=== PATIENT | female | born 1955 | race Asian ===

== ENCOUNTER 2017-10-10 21:58 | Emergency (ER) | payer BC ==
[~2017-10-10] VITALS: Ht 157.5 cm; Wt 63.5 kg
--- NOTE | ~2017-10-10 | EKG ---
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: MANDIE : 1955 Requested By: Vito Hernandez Order Number: [id number] MD: Maxwell Michael Measurements Intervals [place] Rate: 64 P: ME: QRS: 68 QRSD: 100 T: -59 QT: 451 QTc: 466 Interpretive Statements Afib/flut and V-paced complexes No further rhythm analysis attempted due to paced rhythm Nonspecific T abnormalities, diffuse leads Baseline wander in lead(s) V6 Compared to ECG 01/25/2017 11:14:47 Intrinsic depolarizations are not present Electronically Signed On 10-11-2017 13:19:56 KOHINOOR OPERATOR by Maxwell Michael [email or web address] <ELECTRONICALLY SIGNED> By: Maxwell Michael MD, FAC 10/11/17 1319 2347 2347 Maxwell Michael MD, [facility] /EPI
[~2017-10-10 21:58] MED LIST: ACETAMINOPHEN325 M1 PO; ADULT LOW DOSE81 MG PO; AMITRIPTYLINE H25 M2 PO; ANUSOL-HC30 GM RC; ASPIRIN EC81 M1 PO; ASPIRIN325 PO; BENICAR20 MG PO; CARDIZEM; CLOPIDOGREL; COUMADIN; COUMADIN 2 MG TA2 M1 PO; COUMADIN 2.5MG2.5 M1 PO; COUMADIN 4 MG TA4 M1 PO; DIABETES HEALT1 EAC1 PO; DILTIAZEM 24HR240 M1 PO; DILTIAZEM ER120 M1 PO; ELAVIL PO; FISH OIL 1,0001 EAC7 PO; GLUCOPHAGE500 MG PO; LANOXIN 0.250.25 M1 PO; LASIX 40 MG TAB40 M2 PO; LIPITOR; LIPITOR 40 MG T40 M1 PO; LIPITOR20 MG PO; MACROBID 100 M100 M1 PO; NORCO 5-325 TA1 EACH PO; OMEPRAZOLE; OMEPRAZOLE20 M2 PO; PREVACID30 MG PO; PYRIDIUM200 MG PO; TOPROL XL50 MG PO; VALIUM5 MG PO; VENTOLIN HFA INH8 GM INH; ZANTAC 150MG T150 MG PO
[2017-10-11] MEDS ORDERED: SENNA-DOCUSATE1 EACH PO (00:10)
[2017-10-11] MEDS ORDERED: NORCO 5-325 TA1 EACH PO (00:10)
[2017-10-11 00:26] VITALS: BP 121/85
== END 2017-10-11 00:26 | disposition home or self-care (01) ==
LOC: ER 21:58
DX: M25.511 Pain in right shoulder (principal); E11.9 Type 2 diabetes mellitus without complications; I10 Essential (primary) hypertension; Z86.73 Personal history of transient ischemic attack (TIA), and cerebral infarction without residual deficits; Z90.722 Acquired absence of ovaries, bilateral; Z88.6 Allergy status to analgesic agent; Z91.013 Allergy to seafood; Z87.891 Personal history of nicotine dependence

== ENCOUNTER → 2017-12-12 | Outpatient (CLI) | payer BC ==
[~2017-12-12] MED LIST changes: +SENNA-DOCUSATE1 EACH PO
== END ==
LOC: RAD 09:15
DX: R07.9 Chest pain, unspecified (principal)

== ENCOUNTER → 2018-01-08 | Outpatient (CLI) | payer OTHER | LOC: RAD 10:17 | DX: J98.11 Atelectasis (principal); R91.8 Other nonspecific abnormal finding of lung field ==

== ENCOUNTER 2019-06-10 13:34 | Inpatient (IN) | payer OTHER ==
[~2019-06-10] VITALS: Ht 157.5 cm; Wt 59.0 kg
--- NOTE | ~2019-06-10 | EKG ---
[address] [place] [address] ELECTROCARDIOGRAM REPORT Name: SHANIABRIAN LIN Room #: 170-1 ADM IN M.R.#: [id number] ������������������ Admission: 06/10/19 ������������������ Attend Phys: Serg Sher MD Discharge: ������������������ Date of : 59 Report #: [id number] ����������������������������������������������������������������� [id number] THIS REPORT FOR: //name// [facility] ED Test Date: 2019-06-10 Test Time: 17:07:05 Pat Name: BRIAN JAUREGUI Department: Room: 170 Gender: F Dispatcher Radioactive Waste Disposal: : 1955 Requested By: Prem Roldan Order Number: [id number] MD: Measurements Intervals [place] Rate: 60 P: 0 MI: 48 QRS: -75 QRSD: 159 T: 99 QT: 524 QTc: 524 Interpretive Statements Ventricular-paced rhythm No further analysis attempted due to paced rhythm Compared to ECG 10/10/2017 23:47:31 Atrial fibrillation no longer present T-wave abnormality no longer present [email or web address] ��������������������������������������������� ���������������������������������������� By: ��������������������������������������������� 06 1707 Epiphany EpiphanyMD /EPI
[2019-06-10 13:35] VITALS: BP 142/60
[2019-06-10 13:50] LABS: ABSOLUTE NEUTROPHILS 3.7 thou/uL (1.4-8.2); EOSINOPHILS 1.4 % (0.0-3.0); HEMATOCRIT 42.3 % (37.0-47.0); HEMOGLOBIN 13.9 gm/dL (12.0-15.0); LYMPHOCYTES 33.9 % (24.0-44.0); MCH 28.8 pg (26.0-34.0); MCV 87.4 fL (80.0-100.0); MONOCYTES 7.4 % (1.0-8.0); PLATELET COUNT 170 thou/uL (150-400); POLYS 56.3 % (36.0-66.0); RBC 4.83 mil/uL (4.20-5.00); RDW 14.5 % (10.5-14.5); WBC 6.5 thou/uL (4.0-11.0)
[2019-06-10 13:57] LABS: ANION GAP 9 mmol/L (7-16); BUN 26 mg/dL (7-18); CALCIUM 9.6 mg/dL (8.5-10.1); CHLORIDE 104 mmol/L (98-107); CO2 27 mmol/L (21-32); GLUCOSE 100 mg/dL (74-106); POTASSIUM 3.5 mmol/L (3.5-5.1); SODIUM 140 mmol/L (136-145)
[2019-06-10 14:05] LABS: INR 2.9; PROTIME 30.1 Seconds (9.3-11.4)
[2019-06-10 14:06] LABS: TROPONIN-I <0.06 ng/mL (<0.06)
[2019-06-10 18:13] VITALS: BP 130/63
[2019-06-10 18:38] VITALS: BP 130/63
[2019-06-10 19:05] VITALS: BP 144/63
--- NOTE | 2019-06-10 22:24 | NUR ---
PT ARRIVED TO ROOM FROM ER AROUND 1844. UPON INITIAL ASSESSMENT, PT C/O LEFT SIDED CHEST PAIN THAT RADIATED DOWN LEFT ARM AND LEG. PT STATED PAIN FELT LIKE A SQUEEZING SENSATION. PT STATED PAIN WAS INTERMITTENT AND HAS BEEN HAPPENING SINCE FRIDAY. PT ALSO C/O NAUSEA AND DIZZINESS. VSS. AFEBRILE. V-PACED ON TELE. NOTIFIED DR BEAVER. ORDERS RECEIVED. IVF, MORPHINE, AND ZOFRAN GIVEN PER ORDER. PT STATED SHE IS FEELING SLIGHTLY BETTER NOW. RESTING COMFORTABLY IN BED. ADMISSION HX AND ASSESSMENT COMPLETED CHARTED. WILL CONTINUE TO MONITOR FURTHER.
[2019-06-10 23:40] VITALS: BP 138/60
[2019-06-11 04:18] VITALS: BP 115/64
--- NOTE | 2019-06-11 04:35 | NUR ---
PT SLEPT THROUGHOUT THE NIGHT. PT DENIES ANY CHEST PAIN AT THIS TIME. C/O MILD NAUSEA. DENIES ANY MORE HEADACHE. IVF INFUSING ORDERED. VSS. AFEBILE. FALL PRECAUTIONS IN PLACE. PROGRESSING TOWARD POC GOALS. WILL CONTINUE TO MONITOR FURTHER.
[2019-06-11 07:27] VITALS: BP 134/62
--- NOTE | 2019-06-11 10:26 | NUR ---
0830-Pt stated that her CP was resolved. CHANG is on & off. Pt expressed to go home today. Dr. Campa at bedside this morning then recommended to discharge pt today and to visit his clinic as outpt.
[2019-06-11 10:59] VITALS: BP 134/62
[2019-06-11 12:00] VITALS: BP 134/62
--- NOTE | 2019-06-11 12:50 | NUR ---
INITIAL ASSESSMENT: Pt evaluated for d/c planning needs. Reviewed chart and spoke with nurse and pt. Pt is alert and oriented. Pt lives in house with son and was independent with ADL's prior to admission to the hospital. Pt is employed and remains active in the community. Pt has had [facility] in the past and has a walkr. Pt plans on returning home on d/c from hospital. No needs indicated.
--- NOTE | 2019-06-11 13:40 | NUR ---
discharge note; Pt dischrged home. Pt ate lunch. Pt's gait was steady when she used BSC. BS 134. Discharge instructions- medications, diet, activity, and F/U were reviewed pt. Pt verbalized understanding. Pt's belongings were returned to pt. IV was removed by this nurse. Pt was taken via W/C by this nurse to ER entrance door.
--- NOTE | 2019-06-13 18:02 | EKG ---
[place] [address] [address] [facility] [place] [address] ELECTROCARDIOGRAM REPORT Name: SHANIABRIAN MENDEZENTO Room #: 358-P [facility] IN M.R.#: [id number] ������������������ Admission: 06/10/19 ������������������ Attend Phys: Serg Sher MD Discharge: 06/11/19 ������������������ Date of : 59 Report #: [id number] ����������������������������������������������������������������� [id number] THIS REPORT FOR: //name// [facility] ED Test Date: 2019-06-10 Test Time: 13:39:45 Pat Name: BRIAN JAUREGUI Department: Room: [facility] Gender: F 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: : 1955 Requested By: Prem Roldan Order Number: [id number] MD: Maxewll Michale Measurements Intervals [place] Rate: 60 P: 0 NV: 65 QRS: -74 QRSD: 163 T: 99 QT: 514 QTc: 514 Interpretive Statements Ventricular-paced rhythm No further analysis attempted due to paced rhythm Compared to ECG 10/10/2017 23:47:31 Intrinsic depolarizations are no longer present Electronically Signed On 06-13-2019 18:02:03 CDT by Maxwell Michael [email or web address] ��������������������������������������������� <ELECTRONICALLY SIGNED> ���������������������������������������� By: Maxwell Michael MD, [facility] ��������������������������������������������� 06/13/19 1802 1339 1339 Maxwell Michael MD, [facility] /EPI
--- NOTE | 2019-06-13 18:06 | EKG ---
[place] [address] [facility] [employer] [place] [address] ELECTROCARDIOGRAM REPORT Name: SHANIABRIAN MENDEZENTO Room #: 358-P [facility] IN M.R.#: [id number] ������������������ Admission: 06/10/19 ������������������ Attend Phys: Serg Sher MD Discharge: 06/11/19 ������������������ Date of : 59 Report #: [id number] ����������������������������������������������������������������� [id number] THIS REPORT FOR: //name// [facility] ED Test Date: 2019-06-10 Test Time: 17:07:05 Pat Name: BRIAN JAUREGUI Department: Room: [facility] Gender: F Doctor Of Nursing Practice: : 1955 Requested By: Prem Roldan Order Number: [id number] MD: Maxwell Michael Measurements Intervals [place] Rate: 60 P: 0 ME: 48 QRS: -75 QRSD: 159 T: 99 QT: 524 QTc: 524 Interpretive Statements Ventricular-paced rhythm No further analysis attempted due to paced rhythm Compared to ECG 10/10/2017 23:47:31 No significant change was found Electronically Signed On 06-13-2019 18:05:48 CDT by Maxwell Michael [email or web address] ��������������������������������������������� <ELECTRONICALLY SIGNED> ���������������������������������������� By: Maxwell Michael MD, [facility] ��������������������������������������������� 06/13/19 1805 1707 170 Maxwell Mcihael MD, [facility] /EPI
--- NOTE | 2019-06-14 08:20 | HC ---
[facility] [place] [address] CONSULTATION Name: BRIAN JAUREGUI Room #: 358-P [facility] IN M.R.#: [id number] Admission: 06/10/19 ������������������ Attend Phys: Serg Sher MD Discharge: 06/11/19 ������������������ Date of : 59 Report #: [id number] THIS REPORT FOR: //name// CC: Serg Sher DATE OF SERVICE: 06/11/2019 INDICATION: Chest pain. HISTORY OF PRESENT ILLNESS: This is a 63-year-old female with a history of CAD, stents in the LAD and RCA in 2008, atrial fibrillation, permanent pacemaker, TIA, hypertension, hypercholesterolemia, and noncompliance. For the past several days, she has had substernal chest pains, on and off. It can occur at rest or when she is pushing a cart at work. She denies any shortness of breath or diaphoresis. There has been no history of nausea, vomiting, or diarrhea. She reports no changes with movement of her arms or deep inspiration. Two sets of troponin levels are negative. The ECG reveals a paced rhythm. PAST MEDICAL HISTORY: CAD with stent placement to the LAD and RCA in 2008, history of intolerance to Ranexa, diabetes mellitus, hypertension, hypercholesterolemia, TIA, edema. Her last stress test was in 2016, nonischemic. She did not want stress testing to be performed. ALLERGIES: INCLUDE ASPIRIN, ELIQUIS, PRADAXA, SAVAYSA. MEDICATIONS AT HOME: Include aspirin once a day, Lasix 40 mg daily, metformin, metoprolol 50 mg, Benicar 20 mg daily, Prilosec, warfarin, Lipitor 20 mg, and meclizine. SOCIAL HISTORY: Former smoker. FAMILY HISTORY: Negative for premature CAD. REVIEW OF SYSTEMS: A full 10-point review of systems performed. Only the pertinent positives and negatives are described in the HPI. PHYSICAL EXAMINATION: VITAL SIGNS: Blood pressure is 130/60, heart rate is 60 beats per minute. GENERAL APPEARANCE: This is a well-developed, well-nourished female in no acute distress. HEENT: Normocephalic, atraumatic. Oral mucosa moist. NECK: Supple. LUNGS: Clear to auscultation. CARDIAC: Regular rate and rhythm, S1, S2 positive. ABDOMEN: Soft, nontender. EXTREMITIES: No cyanosis, no edema. [facility] [address] [place] [address] CONSULTATION Name: BRIAN JAUREGUI Room #: 358-P [facility] IN M.R.#: [id number] Admission: 06/10/19 ������������������ Attend Phys: Serg Sher MD Discharge: 06/11/19 ������������������ Date of : 59 Report #: [id number] DIAGNOSTIC DATA: ECG reveals paced rhythm. LABORATORY VALUES: Troponin is negative x 2. Hemoglobin 13.9. INR is 2.9, creatinine is 1.0. ASSESSMENT AND PLAN: 1. Chest pain syndrome, the differential diagnoses include musculoskeletal, GI, ischemia. She has had pain for the past 2 days, but the troponin level is negative. We discussed stress testing; however, she refuses. The patient would like to go home at this time and follow up as an outpatient. She remained stable at this time, I have instructed the patient to come to the office next week. However, if her symptoms recur, I told the patient that she needs to come back to the hospital. 2. Hypertension, stable on the current regimen. 3. Hypercholesterolemia, tolerating Lipitor. 4. Paroxysmal atrial fibrillation, on warfarin, therapeutic INR. ��������������������������������������������� <ELECTRONICALLY SIGNED> ���������������������������������������� By: Zack Campa MD ��������������������������������������������� 06/14/19 0820 0911 0959 Zack Campa MD /nt
== END 2019-06-11 13:43 | disposition home or self-care (01) | DRG 206 ==
LOC: ER 13:34 → EROBS 17:07 → 3W 17:07 → ENTRNSPT 06-11 13:02 → EDTRNSPTSTS 06-11 13:05 → 3W 06-11 13:43
PROVIDERS: Emergency Medicine; ADMIT Family Medicine
DX: M94.0 Chondrocostal junction syndrome [Tietze] (principal); E11.9 Type 2 diabetes mellitus without complications; I10 Essential (primary) hypertension; I48.0 Paroxysmal atrial fibrillation; E78.00 Pure hypercholesterolemia, unspecified; I25.10 Atherosclerotic heart disease of native coronary artery without angina pectoris; Z95.0 Presence of cardiac pacemaker; Z95.5 Presence of coronary angioplasty implant and graft; I25.2 Old myocardial infarction; Z86.73 Personal history of transient ischemic attack (TIA), and cerebral infarction without residual deficits; Z88.6 Allergy status to analgesic agent; Z91.013 Allergy to seafood; Z87.891 Personal history of nicotine dependence; Z79.899 Other long term (current) drug therapy
CPT/HCPCS: 10879

== ENCOUNTER → 2019-06-21 | Outpatient (CLI) | payer OTHER | LOC: NUC 06:50 | DX: I48.91 Unspecified atrial fibrillation (principal); E78.5 Hyperlipidemia, unspecified; I10 Essential (primary) hypertension; E11.9 Type 2 diabetes mellitus without complications; Z95.0 Presence of cardiac pacemaker; Z79.84 Long term (current) use of oral hypoglycemic drugs; Z79.01 Long term (current) use of anticoagulants; Z88.8 Allergy status to other drugs, medicaments and biological substances; Z87.891 Personal history of nicotine dependence ==

== ENCOUNTER → 2020-06-19 | Outpatient (CLI) | payer OTHER | LOC: SJCVCIMAG 10:43 | PROVIDERS: ATTEND Internal Medicine Cardiovascular Disease | DX: I08.8 Other rheumatic multiple valve diseases (principal); I48.91 Unspecified atrial fibrillation; Z95.0 Presence of cardiac pacemaker ==

== ENCOUNTER 2021-05-10 10:38 | Inpatient (IN) | payer OTHER ==
[~2021-05-10] VITALS: Ht 157.5 cm; Wt 59.0 kg
--- NOTE | ~2021-05-10 | HC ---
[facility] [place] [address] CONSULTATION Name: BRIAN JAUREGUI Room #: 213-P ADM IN M.R.#: [id number] Admission: 05/10/21 Attend Phys: Serg Sher MD Discharge: Date of : 59 Report #: [id number] THIS REPORT FOR: cc: Serg Sher MD, Neal A. MD Khosla,Gregory Teresa MD ~ DOC #: [id number] Gregory Birmingham MD DATE OF SERVICE: 05/10/2021 HISTORY OF PRESENT ILLNESS: This is a 65-year-old female patient, who is very difficult to evaluate. She gives a history that she has left-sided weakness, but this is distractible weakness and as examination indicate, looks very unusual. She would not answer most of the questions. She has been here in the hospital in the past and I reviewed all those records. She saw Dr. Chang, who is a Neurologist and then she was here. At that time also she had some left-sided weakness and did not find any documentation for the patient's acute stroke. Now, this patient does have on CT scan, an old cerebellar stroke, but that should not cause her symptoms on the left side, because it is in the cerebellum and even if it caused symptoms, it should be ataxia. REVIEW OF SYSTEMS: A 14-point review of system was carried out as much as I can carry out with the patient and the family. She is on Coumadin. I am not sure whether she takes it properly. I have seen the notes from the [facility] in the past and she has declined treadmill testing. She has been admitted with chest pain. She does have a history of dyslipidemia as I understand. A 14-point review of system was attempted. It was very difficult, but this is all I can get. PAST MEDICAL HISTORY: Positive for question of stroke. I reviewed her prior medical records and it looks like she has multiple workups, but never had an MRI because of the pacemaker. In one instance, it says taken, but it is no charge, so I suspect it was not done. FAMILY HISTORY: Unremarkable. SOCIAL HISTORY: She does not smoke as I understand. PHYSICAL EXAMINATION: GENERAL: Very difficult. This patient is apathetic. Her exam is also pretty unusual. When I asked her to move her left arm, she says she cannot do it and when she is distracted, she was able to move her left hand. When I lifted her arm up, it fell, but in slow motion rather than falling like a limb. When I tried to do the position sense in this patient, she says she has absolutely no position sense in the left upper extremity. Similarly, she has no pinprick on the left side. [facility] [address] [place] [address] CONSULTATION Name: BRIAN JAUREGUI Room #: 213-P ADM IN M.R.#: [id number] Admission: 05/10/21 Attend Phys: Serg Sher MD Discharge: Date of : 59 Report #: [id number] CARDIAC: Examination is positive for pacemaker. One of the records says she had atrial fibrillations in the past. No respiratory difficulty was noticed. VITAL SIGNS: Blood pressure is 133/46, respirations 17, pulse is 60, temperature is 98.2. Her INR is 1.9. I discussed the patient with Dr. Sher, who is the admitting doctor. I discussed the patient with Dr. Lilly, from Emergency Room multiple times. The patient was also discussed with the supply chain coordinator. IMPRESSION: Pretty difficult to form in this patient. This patient is predisposed to have stroke if she does have atrial fibrillation, because she is subtherapeutic on INR and her compliance has always been questionable. However, exam is pretty atypical. It is difficult to put that examine can do any good anatomical location. In any event, this patient was not a TPA candidate because she came outside the window for TPA as I understand from the emergency room physician. She is also on Coumadin with an INR of 1.93 and that will also exclude the TPA. She is not a thrombectomy candidate because no thrombus was found. CT angio and CT head is normal. I do not have anything specific to add in this patient. Cardiology is going to see and they can decide about anticoagulation in this patient ___ versus older one depending upon whether she has documented atrial fibrillation or not. The present symptoms of stroke are pretty questionable, but as mentioned above, this patient does have a predisposing factor for strokes and we need to be cautious and we will do repeat examination. Dr. Pereyra will follow up this patient with you from tomorrow. Thank you very much for this referral. Gregory Birmingham MD PK/PUN By: 1535 0150 Gregory Birmingham MD /nt
[2021-05-10 10:39] VITALS: BP 121/53; BP 145/65
[2021-05-10 11:18] LABS: BASOPHILS 0.6 % (0.0-2.0); EOSINOPHILS 1.6 % (0.0-3.0); HEMATOCRIT 41.5 % (37.0-47.0); HEMOGLOBIN 13.7 gm/dL (12.0-15.0); LYMPHOCYTES 29.6 % (24.0-44.0); MCH 29.4 pg (26.0-34.0); MCV 88.9 fL (80.0-100.0); MONOCYTES 7.9 % (1.0-8.0); PLATELET COUNT 200 thou/uL (150-400); POLYS 60.3 % (36.0-66.0); RBC 4.67 mil/uL (4.20-5.00); RDW 14.6 % (10.5-14.5); WBC 6.6 thou/uL (4.0-11.0)
[2021-05-10] MEDS ORDERED: JANTOVEN2 MG PO (11:20)
[2021-05-10 11:30] LABS: ANION GAP 7 mmol/L (7-16); BUN 21 mg/dL (7-18); CALCIUM 9.2 mg/dL (8.5-10.1); CHLORIDE 103 mmol/L (98-107); CO2 31 mmol/L (21-32); GLUCOSE 102 mg/dL (74-106); POTASSIUM 3.5 mmol/L (3.5-5.1); SODIUM 141 mmol/L (136-145)
[2021-05-10 11:38] LABS: ALBUMIN 3.9 g/dL (3.4-5.0); MAGNESIUM 2.2 mg/dL (1.8-2.4); SGOT 28 U/L (15-37); SGPT 48 U/L (14-59); TOTAL BILIRUBIN 0.5 mg/dL (0.2-1.0); TOTAL PROTEIN 7.7 g/dL (6.4-8.2); TROPONIN-I <0.06 ng/mL (<0.06)
--- NOTE | 2021-05-10 12:15 | EKG ---
[place] [address] [facility] [place] [address] ELECTROCARDIOGRAM REPORT Name: BRIAN JAUREGUI Room #: [facility]#: [id number] Admission: 05/10/21 Attend Phys: Discharge: Date of : 59 Report #: [id number] [facility] ED Test Date: 2021-05-10 Test Time: 10:50:28 Pat Name: BRIAN JAUREGUI Department: Room: Gender: F Engineering Inspector: SARAH : 1955 Requested By: Sury Lilly Order Number: [id number] MD: Magdaleno Rios Measurements Intervals [place] Rate: 60 P: 0 ME: 51 QRS: -72 QRSD: 160 T: 101 QT: 508 QTc: 508 Interpretive Statements Ventricular-paced rhythm No further analysis attempted due to paced rhythm Compared to ECG 06/10/2019 17:07:05 No significant changes Electronically Signed On 05-10-2021 12:14:58 CDT by Magdaleno Rios [email or web address] <ELECTRONICALLY SIGNED> By: Magdaleno Rios MD, [facility] 05/10/21 1214 1050 1050 Magdaleno Rios MD, [facility] /EPI
[2021-05-10 14:02] LABS: INR 1.93; PROTIME 20.4 Seconds (10.5-12.1)
[2021-05-10 14:20] VITALS: BP 109/55
[2021-05-10 14:47] VITALS: BP 117/57
[2021-05-10 15:05] VITALS: BP 133/46
--- NOTE | 2021-05-10 17:41 | NUR ---
ADMITTED THIS PATIENT FROM EMERGENCY DEPARTMENT.ON ROOM AIR BREATHING SPONATENOUSLY.NOT IN DISTRESS.ROUTINE ADMISSION COMPLETED.SEEN BY DR. BEAVER AND DR. GUERIN.ALL NEEDS ATTENDED
[2021-05-10 19:42] VITALS: BP 118/52
--- NOTE | 2021-05-10 20:29 | NUR ---
UPON INITIAL ASSESSMENT PATIENT HAD COMPLAINTS CHEST PAIN 8 OF 10. EKG ORDERED WHICH WAS NEGATIVE. CALL PLACED TO PROVIDER WITH ORDERS RECEIVED FOR PAIN MEDICATION AND TROPONIN. NURSE TO CONTINUE TO EVALUATE.
[2021-05-11 00:16] VITALS: BP 120/58
[2021-05-11 04:07] VITALS: BP 114/57
[2021-05-11 05:52] LABS: CHOLESTEROL 112 mg/dL (<200); HDL CHOLESTEROL 48 mg/dL (>40); LDL CHOLESTEROL 43 mg/dL (<100); TC:HDL 2.3 Ratio (Not establshd); TRIGLYCERIDE 105 mg/dL (<150); VLDL 21 mg/dL (<40)
[2021-05-11 06:07] LABS: SERUM ASSESSMENT Clear
--- NOTE | 2021-05-11 07:31 | EKG ---
[place] [address] [facility] [place] [address] ELECTROCARDIOGRAM REPORT Name: BRIAN JAUREGUI Room #: 213- ADM IN M.R.#: [id number] Admission: 05/10/21 Attend Phys: Serg Sher MD Discharge: Date of : 59 Report #: [id number] [facility] Test Date: 2021-05-10 Test Time: 19:44:16 Pat Name: BRIAN JAUREGUI Department: Room: 213 P Gender: F Membership Counselor: FSCHWALBE : 1955 Requested By: Serg Sher Order Number: [id number] MD: Magdaleno Riso Measurements Intervals [place] Rate: 60 P: 0 [place]: 97 QRS: -73 QRSD: 167 T: 104 QT: 517 QTc: 517 Interpretive Statements Ventricular-paced rhythm No further analysis attempted due to paced rhythm Compared to ECG 05/10/2021 10:50:28 No significant changes Electronically Signed On 05-11-2021 7:31:24 CDT by Magdaleno Rios [email or web address] <ELECTRONICALLY SIGNED> By: Magdaleno Rios MD, [facility] 06/730 43 43 Magdaleno Rios MD, [facility] /EPI
[2021-05-11 08:41] VITALS: BP 128/58
[2021-05-11 09:31] LABS: INR 1.98; PROTIME 20.9 Seconds (10.5-12.1)
--- NOTE | 2021-05-11 10:38 | 2DMMODE ---
[facility] [place] [address] 2 D/M-MODE ECHOCARDIOGRAM Name: BRIAN JAUREGUI Room #: 213-P ADM IN M.R.#: [id number] Admission: 05/10/21 Attend Phys: Serg Sher MD Discharge: Date of : 59 Report #: [id number] THIS REPORT FOR: cc: Serg Sher MD, Neal A. MD Park, Jin S. MD ~ APPROVED REPORT Study performed: 05/11/2021 09:52:25 EXAM: Comprehensive 2D, Doppler, and color-flow Echocardiogram Patient Location: Bedside Room #: 213 Status: routine BSA: 1.61 HR: 61 bpm BP: 128/58 mmHg Rhythm: Pacemaker Other Information Study Quality: Good Indications Diabetes Atrial Fibrillation Dyspnea Pacemaker CAD Chest Pain Hypertension/HDD 2D Dimensions RVDd: 46.56 mm IVSd: 10.27 (7-11mm) LVOT Diam: 18.72 (18-24mm) LVDd: 43.13 mm PWd: 9.54 (7-11mm) Ascending Ao: 23.71 (22-36mm) LVDs: 29.41 (25-40mm) Left Atrium: 41.52 (27-40mm) Aortic Root: 27.72 mm IVC: 22.00 mm Volumes Left Atrial Volume (Systole) Single Plane 4CH: 83.01 mL Single Plane 2CH: 80.68 mL LA ESV Index: 57.00 mL/m2 [facility] [address] [place] [address] 2 D/M-MODE ECHOCARDIOGRAM Name: SHANIABRIAN LÓPEZO Room #: 213-P [facility] IN .R.#: [id number] Admission: 05/10/21 Attend Phys: Serg Sher, Discharge: Date of : 59 Report #: [id number] Aortic Valve AoV Peak Vargas.: 1.88 m/s AO Peak Gr.: 14.13 mmHg LVOT Max P.94 mmHg LVOT Max V: 1.22 m/s ANDRE Vmax: 1.78 cm2 AI Vmax: 4.05 m/s AI Gilmer: 1.94 m/s2 AI PHT: 604.69 ms Pulmonary Valve PV Peak Vargas.: 0.95 m/s PV Peak Gr.: 3.62 mmHg Tricuspid Valve TR Peak Vargas.: 3.02 m/s TR Peak Gr.: 36.55 mmHg PA Pressure: 47.00 mmHg Left Ventricle The left ventricle is normal size. There is normal LV segmental wall motion. There is normal left ventricular wall thickness. The left ventricular systolic function is normal. The left ventricular ejection fraction is within the normal range. LVEF is 55-60%. This study is not technically sufficient to allow evaluation of the LV diastolic function. Right Ventricle Right ventricle is dilated. The right ventricular systolic function is normal. Atria Left atrium is dilated. Right atrium is dilated. Aortic Valve The aortic valve is normal in structure. Mild aortic regurgitation. There is no aortic valvular stenosis. Mitral Valve The mitral valve is normal in structure. Mild to moderate mitral regurgitation. No evidence of mitral valve stenosis. Tricuspid Valve The tricuspid valve is normal in structure. There is severe tricuspid regurgitation. Estimated PAP 44 mmHg. There is moderate pulmonary hypertension. [facility] [address] [place] [address] 2 D/M-MODE ECHOCARDIOGRAM Name: SHANIABRIAN AMINMIENTO Room #: [address] [place] [address] IN M.R.#: [id number] Admission: 05/10/21 Attend Phys: Serg Sher, Discharge: Date of : 59 Report #: [id number] Pulmonic Valve The pulmonary valve is normal in structure. Trace pulmonic regurgitation. Great Vessels The aortic root is normal in size. IVC is dilated and collapses <50% with inspiration. Pericardium There is no pericardial effusion. <Conclusion> The left ventricle is normal size. There is normal left ventricular wall thickness. The left ventricular systolic function is normal. Right ventricle is dilated. Right atrium is dilated. Mild aortic regurgitation. Mild to moderate mitral regurgitation. There is severe tricuspid regurgitation. Estimated PAP 44 mmHg. <ELECTRONICALLY SIGNED> By: Zack Campa MD 05/11/21 1037 [facility] Silvano Campa MD /STEWART
[2021-05-11 11:00] VITALS: BP 106/55
--- NOTE | 2021-05-11 15:56 | NUR ---
PT ALERT AND ORIENTED. VSS. DENIED HAVING PAIN OR DISCOMFORT. SLIGHT LEFT SIDED WEAKNESS. SEEN BY NEUROLOGY. NO NEW ORDERS NOTED. EVALUATED BY PT/OT. NO CONCERNS AT THIS TIME.
[2021-05-11 16:00] VITALS: BP 108/39
[2021-05-11 20:32] VITALS: BP 124/49
[2021-05-12 01:06] LABS: GLYCOHEMOGLOBIN (HGB A1C) 7.7 % (4.8-5.6)
--- NOTE | 2021-05-12 03:19 | NUR ---
ASSESSMENT: PT REMAIN ALERT AND ORIENT TIMES FOUR. UP TO BR WITH SBA, LEFT SIDE WEAKNESS. V-PACED/SR PER MONITOR. PT WILL DC TO HOME IN THE AM. NEURO CHECKS UNCHANGED PER ASSESSMENT. PT REQUESTED TO STAY HOSPITALIZED FOR AN EXTRA DAY. PT SLEPT MOST OF THE NIGHT. DENIES PAIN. GOOD PROGRESS TOWARDS DC GOALS. WILL CONTINUE TO MONITOR.
[2021-05-12 04:49] VITALS: BP 131/69
[2021-05-12 05:05] LABS: INR 1.85; PROTIME 19.6 Seconds (10.5-12.1)
[2021-05-12 07:45] VITALS: BP 132/65
[2021-05-12 11:55] VITALS: BP 104/55
[2021-05-12 12:13] VITALS: BP 132/65
--- NOTE | 2021-05-12 14:25 | NUR ---
ASSESSMENT CHARTED. PT ALERT AN ORIENTED. VSS. DENIED HAVING PAIN. REPORT FEELING MUCH BETTER TODAY. ORDERS GIVEN TO DISCHARGE PT TO HOME. DISCHARGE INSTRUCTIONS GIVEN TO PT. PT VERBERLISED UNDERSTANDING.
== END 2021-05-12 14:38 | disposition home or self-care (01) | DRG 69 ==
LOC: ER 10:38 → EROBS 13:48 → 2N 13:48
PROVIDERS: Emergency Medicine; Nurse Practitioner; ADMIT Family Medicine; ATTEND Family Medicine
DX: G45.9 Transient cerebral ischemic attack, unspecified (principal); I48.21 Permanent atrial fibrillation; G81.94 Hemiplegia, unspecified affecting left nondominant side; R07.9 Chest pain, unspecified; I49.5 Sick sinus syndrome; I25.10 Atherosclerotic heart disease of native coronary artery without angina pectoris; I10 Essential (primary) hypertension; E78.5 Hyperlipidemia, unspecified; E11.9 Type 2 diabetes mellitus without complications; Z79.84 Long term (current) use of oral hypoglycemic drugs; Z79.01 Long term (current) use of anticoagulants; Z79.899 Other long term (current) drug therapy; Z88.8 Allergy status to other drugs, medicaments and biological substances; Z91.013 Allergy to seafood; Z86.73 Personal history of transient ischemic attack (TIA), and cerebral infarction without residual deficits; Z95.5 Presence of coronary angioplasty implant and graft; Z95.810 Presence of automatic (implantable) cardiac defibrillator; I25.2 Old myocardial infarction; Z87.891 Personal history of nicotine dependence; Z90.722 Acquired absence of ovaries, bilateral
CPT/HCPCS: 10081

== ENCOUNTER → 2021-06-07 | Outpatient (CLI) | payer OTHER ==
[~2021-06-07] MED LIST changes: +JANTOVEN2 MG PO
== END ==
LOC: SJCVCIMAG 06:26
PROVIDERS: ATTEND Internal Medicine Cardiovascular Disease
DX: I49.3 Ventricular premature depolarization (principal); I48.91 Unspecified atrial fibrillation; R07.89 Other chest pain; I25.10 Atherosclerotic heart disease of native coronary artery without angina pectoris; E11.9 Type 2 diabetes mellitus without complications; Z79.82 Long term (current) use of aspirin; Z79.899 Other long term (current) drug therapy; Z98.61 Coronary angioplasty status

== ENCOUNTER 2021-07-09 10:30 | Emergency (ER) | payer OTHER ==
[~2021-07-09] VITALS: Ht 157.5 cm; Wt 51.7 kg
[2021-07-09 10:31] VITALS: BP 111/63
[2021-07-09] MEDS ORDERED: LASIX 40 MG TAB40 MG PO (11:52)
== END 2021-07-09 12:01 | disposition home or self-care (01) ==
LOC: ER 10:30
DX: R60.9 Edema, unspecified (principal); I48.91 Unspecified atrial fibrillation; E11.9 Type 2 diabetes mellitus without complications; I10 Essential (primary) hypertension; I25.2 Old myocardial infarction; Z76.0 Encounter for issue of repeat prescription; Z90.89 Acquired absence of other organs; Z98.890 Other specified postprocedural states; Z79.84 Long term (current) use of oral hypoglycemic drugs; Z79.82 Long term (current) use of aspirin; Z79.51 Long term (current) use of inhaled steroids; Z79.899 Other long term (current) drug therapy; Z88.8 Allergy status to other drugs, medicaments and biological substances; Z91.013 Allergy to seafood; Z87.891 Personal history of nicotine dependence